=== PATIENT | female | born 1985 | race Caucasian/White ===

== ENCOUNTER → 2016-10-07 | Outpatient (CLI) | payer BC | END | disposition home or self-care (01) | LOC: C.LAB1850 13:28 | PROVIDERS: ATTEND Obstetrics & Gynecology | DX: Z32.00 Encounter for pregnancy test, result unknown (principal); E03.9 Hypothyroidism, unspecified ==

== ENCOUNTER → 2016-10-29 | Outpatient (CLI) | payer BC ==
[2016-10-29 17:57] LABS: URINE APPEARANCE CLEAR (CLEAR); URINE BILIRUBIN NEG (NEG); URINE COLOR YELLOW; URINE NITRITE NEG (NEG); UROBILINOGEN NEG (NEG)
[2016-10-29 18:04] LABS: MANUAL MICROSCOPIC REQUIRED? NO; REVIEW REQ? NO
== END | disposition home or self-care (01) ==
LOC: C.LABSPEC 16:15
PROVIDERS: ATTEND Obstetrics & Gynecology
DX: O99.281 Endocrine, nutritional and metabolic diseases complicating pregnancy, first trimester (principal); Z3A.00 Weeks of gestation of pregnancy not specified

== ENCOUNTER → 2016-12-02 | Outpatient (CLI) | payer BC ==
[2016-12-02 16:22] LABS: THYROID STIMULATING HORMONE 1.3 uIu/ml (0.300-4.500)
== END | disposition home or self-care (01) ==
LOC: C.LAB1850 14:57
PROVIDERS: ATTEND Obstetrics & Gynecology
DX: O99.281 Endocrine, nutritional and metabolic diseases complicating pregnancy, first trimester (principal); Z3A.00 Weeks of gestation of pregnancy not specified; E03.9 Hypothyroidism, unspecified

== ENCOUNTER → 2016-12-27 | Outpatient (CLI) | payer BC ==
[2016-12-27 18:22] LABS: GTGD 50 Grams
== END | disposition home or self-care (01) ==
LOC: C.LAB1850 14:52
PROVIDERS: ATTEND Obstetrics & Gynecology
DX: O99.282 Endocrine, nutritional and metabolic diseases complicating pregnancy, second trimester (principal); Z3A.00 Weeks of gestation of pregnancy not specified

== ENCOUNTER → 2017-01-26 | Outpatient (CLI) | payer BC ==
[2017-01-26 17:07] LABS: THYROID STIMULATING HORMONE 2.08 uIu/ml (0.300-4.500)
== END | disposition home or self-care (01) ==
LOC: C.LAB1850 15:09
PROVIDERS: ATTEND Obstetrics & Gynecology
DX: O99.282 Endocrine, nutritional and metabolic diseases complicating pregnancy, second trimester (principal); Z3A.00 Weeks of gestation of pregnancy not specified

== ENCOUNTER → 2017-03-25 | Outpatient (CLI) | payer BC ==
[2017-03-25 16:43] LABS: HEMATOCRIT 30.8 % (37-47); HEMOGLOBIN 10.5 g/dL (12.0-16.0); MEAN CELL VOLUME 92.8 fL (80-100); MEAN CORPUSCULAR HEMOGLOBIN 31.6 pg (25-34); MEAN CORPUSCULAR HGB CONC 34.1 g/dl (32-36); MEAN PLATELET VOLUME 10.1 fL (7.4-10.4); PLATELET COUNT 249 K/uL (130-400); RED CELL DISTRIBUTION WIDTH CV 13.9 % (11.5-14.5); RED CELL DISTRIBUTION WIDTH SD 47.2 fL (36.4-46.3); WHITE BLOOD COUNT 7.99 K/uL (4.8-10.8)
[2017-03-25 17:16] LABS: ALBUMIN 2.8 gm/dl (3.4-5.0); ALT/SGPT 14 U/L (12-78); AST/SGOT 10 U/L (15-37); CREATININE 0.56 mg/dl (0.60-1.20)
[2017-03-25 17:26] LABS: ALKALINE PHOSPHATASE 92 U/L (45-117); TOTAL PROTEIN 6.9 gm/dl (6.4-8.2)
== END | disposition home or self-care (01) ==
LOC: C.LAB1850 15:50
PROVIDERS: ATTEND Obstetrics & Gynecology
DX: O99.283 Endocrine, nutritional and metabolic diseases complicating pregnancy, third trimester (principal)

== ENCOUNTER → 2017-04-08 | Outpatient (CLI) | payer OTHER | END | disposition home or self-care (01) | LOC: C.LAB1850 07:37 | PROVIDERS: ATTEND Obstetrics & Gynecology | DX: O09.293 Supervision of pregnancy with other poor reproductive or obstetric history, third trimester (principal); Z3A.00 Weeks of gestation of pregnancy not specified ==

== ENCOUNTER → 2017-04-19 | Outpatient (CLI) | payer OTHER | END | disposition home or self-care (01) | LOC: C.LAB1850 14:27 | PROVIDERS: ATTEND Obstetrics & Gynecology | DX: O99.283 Endocrine, nutritional and metabolic diseases complicating pregnancy, third trimester (principal) ==

== ENCOUNTER → 2017-05-20 | Outpatient (CLI) | payer OTHER ==
[~2017-05-20] MED LIST: ALBU18002 INH; CHOL1000 PO; FLVHFA44 INH; LACT1CAP21 PO; LEVO88TA3 PO; MTR600X PO; OMEG12006 PO; OXYC-57 PO; PRENTAB26 PO
== END | disposition home or self-care (01) ==
LOC: C.LABSPEC 16:17
PROVIDERS: ATTEND Obstetrics & Gynecology
DX: O09.293 Supervision of pregnancy with other poor reproductive or obstetric history, third trimester (principal); Z3A.00 Weeks of gestation of pregnancy not specified

== ENCOUNTER 2017-05-23 05:34 | Inpatient (IN) | payer OTHER ==
--- NOTE | 2017-05-20 14:53 | PAT Medication Instructions ---
Service Date May 20, 2017. Current Home Medication List Albuterol Sulfate (Proair Respiclick), 2 PUFF INH Q4 PRN for SOB/Wheezing Cholecalciferol (Vitamin D3), 1 TAB PO QPM Fluticasone Propionate (Flovent Hfa), 2 PUFFS INH BID PRN for SOB/Wheezing Lactobacillus (Probiotic Acidophilus), 1 CAP PO QPM Levothyroxine Sodium (Levothyroxine Sodium), 1 TAB PO QAM Multivit/Min/Iron/Fol Ac/Pren ( Vitamin), 1 TAB PO QPM [place]-3 Fatty Acids ([place] 3), 1 CAP PO QPM Medication Instructions For Your Scheduled Surgery - Hold the following medications starting today: [place]-3 Fatty Acids ([place] 3), 1 CAP PO QPM - Contact your surgeon for instructions for: Aspirin 81MG 1 TAB PO QPM - Take the following medications the morning of surgery with a sip of water: Albuterol Sulfate (Proair Respiclick), 2 PUFF INH Q4 PRN for SOB/Wheezing (if needed, and bring it with you to the hospital) Fluticasone Propionate (Flovent Hfa), 2 PUFFS INH BID PRN for SOB/Wheezing (if needed) Levothyroxine Sodium (Levothyroxine Sodium), 1 TAB PO QAM - Take the following medications as scheduled the night before surgery: Albuterol Sulfate (Proair Respiclick), 2 PUFF INH Q4 PRN for SOB/Wheezing (if needed) Cholecalciferol (Vitamin D3), 1 TAB PO QPM Fluticasone Propionate (Flovent Hfa), 2 PUFFS INH BID PRN for SOB/Wheezing (if needed) Lactobacillus (Probiotic Acidophilus), 1 CAP PO QPM Multivit/Min/Iron/Fol Ac/Pren ( Vitamin), 1 TAB PO QPM If you have any questions please call us at [phone] or [phone] or [phone]
[2017-05-20 15:31] LABS: BASO % 0.2 %; BASO ABS # 0.02 K/uL (0-0.2); EOS % 1.5 %; EOS ABS # 0.13 K/uL (0-0.5); HEMATOCRIT 30.1 % (37-47); HEMOGLOBIN 10.7 g/dL (12.0-16.0); IG# 0.03 K/uL (0.00-0.02); LYMPH % 22.1 %; LYMPH ABS # 1.98 K/uL (1.2-3.4); MEAN CELL VOLUME 90.1 fL (80-100); MEAN CORPUSCULAR HGB CONC 35.5 g/dl (32-36); MEAN PLATELET VOLUME 9.8 fL (7.4-10.4); MONO % 7.2 %; MONO ABS # 0.64 K/uL (0.11-0.59); NEUT % 68.7 %; NEUT ABS # 6.14 K/uL (1.4-6.5); PLATELET COUNT 234 K/uL (130-400); RED CELL DISTRIBUTION WIDTH CV 13.8 % (11.5-14.5); RED CELL DISTRIBUTION WIDTH SD 45.4 fL (36.4-46.3); WHITE BLOOD COUNT 8.94 K/uL (4.8-10.8)
--- NOTE | 2017-05-20 17:46 | HISTORY & PHYSICAL EXAMINATION ---
DATE OF ADMISSION: 05/23/2017 ADMIT DIAGNOSES: 1. Intrauterine at 37 and 1/7 weeks. 2. History of previous T incision and a prior delivery. HISTORY OF PRESENT ILLNESS: Maribel is a 32-year-old white female 2, para 0-1-0-1 with an EDC of 06/12/2017 making her 37 and 1/7 weeks on the date of admission. Maribel's previous was complicated by severe preeclampsia, requiring delivery at 32 weeks. She had a section for nonreassuring testing. Unfortunately, they had to T the incision to get the baby delivered. Therefore, because of the T incision, it is recommended that she not labor and to have a delivery between 37 and 38 weeks. That , her first was IVF PICSI. This was spontaneously conceived. Her due date is determined by her last menstrual period consistent with a first trimester ultrasound. Also pertinent to the history, her is hep C positive. Her hep status at the beginning of the was negative. This has been uncomplicated. There have been no issues with her blood pressure throughout and she shows no signs and symptoms of preeclampsia. She does want a tubal ligation and is sure about sterilization. She has had several 24-hour urines that have been normal. She is on an aspirin for prevention of recurrent preeclampsia. Additionally, she takes levothyroxine for hypothyroidism that has been well managed in this . PAST OBSTETRICAL AND GYNECOLOGIC HISTORY: As noted above. She had a at 32 and 5/7 weeks for a 3 pound 2 ounce baby. She has a history of ovarian cystectomy in July of 2014. She had a cryosurgery of the cervix at the age of 18. She also has a history of IVF. The patient has no history of sexually transmitted illnesses. ALLERGIES: LATEX, but no antibiotics. MEDICATIONS: Include aspirin, levothyroxine 88 mcg, Flovent, ProAir, acidophilus, multivitamin and omega 3 as well as vitamin D. PAST MEDICAL HISTORY: The patient has hypothyroidism, for which she is followed by Dr. Zuniga and a history of preeclampsia. She also has a history of mild asthma. She denies heart disease, heart murmur, diabetes, kidney or liver problems. PAST SURGICAL HISTORY: Includes an ovarian cystectomy in 08/08, cryosurgery to the cervix, , skin cyst removed from the head and groin and wisdom teeth removal. SOCIAL HISTORY: The patient denies tobacco, alcohol or drug use. She lives with her spouse and son. PHYSICAL EXAMINATION: GENERAL: This is a well-developed and well-nourished white female in no acute distress. VITAL SIGNS: Blood pressure 112/72 and weight 215.2 pounds. NECK: Supple without thyromegaly or lymphadenopathy. CHEST: Clear to auscultation bilaterally. CARDIOVASCULAR: Regular rate and rhythm without murmurs, gallops or rubs. BACK: Without costovertebral angle tenderness. ABDOMEN: Gravid, soft and nontender, measuring 38 cm. EXTREMITIES: Show trace edema, but are otherwise benign. LABORATORY DATA: Blood type O positive, antibody negative, rubella immune, RPR nonreactive, hepatitis B negative, HIV negative, Hep C negative, chlamydia and gonorrhea cultures negative, GTT x2 negative, and group B strep was obtained today. She declines CF and SMA testing. She declined genetic testing. ASSESSMENT: Maribel is a 2, para 0-1-0-1 with a history of a previous section with a T incision at 32 and 5/7 weeks for severe preeclampsia. The patient presents today for repeat section at 37 weeks and 1 day and given a T incision and the desire to avoid labor. The risks of surgery were discussed with the patient including the risks of anesthesia, bleeding requiring transfusion, infection, poor wound healing, damage to surrounding structures including bowel, bladder, vessels, nerves and ureters with need for further surgery, hospitalization and intervention. I talked about the risk of possible injury to the baby. The patient is very sure that she would like to have sterilization. The alternatives including barriers, hormones, and long-term reversible contraceptive options were discussed with the patient. We discussed the possibility of regret and then a failure of the tubal with subsequent ectopic . She wishes to proceed with tubal sterilization. This will be done at the time of surgery. Consent was reviewed and signed. Questions were asked and answered. Surgery is planned for May 23.
[~2017-05-23] VITALS: Ht 162.6 cm; Wt 97.5 kg
[2017-05-23] VITALS (14 sets, daily range): BP systolic 113–120; BP diastolic 68–79; PULSE 69–81; TEMP 36.4–37.1; O2SAT 96–100; Ht 162.6 cm; Wt 97.5 kg
[~2017-05-23 05:34] MED LIST changes: -MTR600X PO; -OXYC-57 PO; +PATIENT'S HEIGHT AND/OR WEIGHT NEEDED SCH
[2017-05-23] MEDS ORDERED: LACTATED RINGER'S 1000ML IV SCH (06:00)
[2017-05-23] MEDS ORDERED: CITRIC ACID/SODIUM CITRATE 15 ML UDC PO SCH (06:00)
[2017-05-23] MEDS ORDERED: CEFAZOLIN 3000MG IV PUSH 22.5 ML IV SCH (06:00)
[2017-05-23] MEDS ORDERED: CEFAZOLIN IV 3,000 MG in SYRINGE 0 ML IV SCH (06:00)
[2017-05-23 06:12] LABS: BASO % 0.4 %; BASO ABS # 0.03 K/uL (0-0.2); EOS % 1.9 %; EOS ABS # 0.16 K/uL (0-0.5); HEMATOCRIT 34.1 % (37-47); HEMOGLOBIN 11.9 g/dL (12.0-16.0); IG# 0.04 K/uL (0.00-0.02); LYMPH % 24.1 %; LYMPH ABS # 2.01 K/uL (1.2-3.4); MEAN CELL VOLUME 91.4 fL (80-100); MEAN CORPUSCULAR HEMOGLOBIN 31.9 pg (25-34); MEAN PLATELET VOLUME 10.1 fL (7.4-10.4); MONO % 7.6 %; MONO ABS # 0.63 K/uL (0.11-0.59); NEUT % 65.5 %; NEUT ABS # 5.47 K/uL (1.4-6.5); PLATELET COUNT 252 K/uL (130-400); RED CELL DISTRIBUTION WIDTH CV 13.6 % (11.5-14.5); RED CELL DISTRIBUTION WIDTH SD 45.1 fL (36.4-46.3); WHITE BLOOD COUNT 8.34 K/uL (4.8-10.8)
[2017-05-23 06:19] LABS: MEAN CORPUSCULAR HGB CONC 34.9 g/dl (32-36)
--- NOTE | 2017-05-23 07:10 | History & Physical Bridge Note ---
H&P Re-Evaluation Bridge Note: I have examined the patient, reviewed the History & Physical and in the interval since the performance of the History & Physical I have noted the following changes of clinical significance: No changes noted
[2017-05-23] MEDS ORDERED: MoRPHine SULFATE PF 1 MG/ML 10 ML AMP/VIAL ONE (07:33)
[2017-05-23] MEDS ORDERED: FENTANYL CITRATE INJ 50 MCG/1 ML 2 ML VIAL ONE (07:33)
[2017-05-23] MEDS ORDERED: OXYTOCIN INJ 10 UNITS/ML VIAL ONE ×2 (07:36→08:18)
[2017-05-23] MEDS ORDERED: PHENYLEPHRINE 100MCG/ML 5ML SYR ONE (08:01)
[2017-05-23] MEDS ORDERED: SODIUM CHLORIDE 0.9% 1000ML 1,000 ML IV PRN (08:29)
[2017-05-23] MEDS ORDERED: NALOXONE HCL INJ 1 MG in SODIUM CHLORIDE 0.9% 1000ML 1,000 ML IV PRN (08:29)
[2017-05-23] MEDS ORDERED: NALOXONE HCL INJ 0.08 MG in SYRINGE 1.8 ML IV PRN (08:29)
[2017-05-23] MEDS ORDERED: LACTATED RINGER'S 1000ML 500 ML IV PRN (08:29)
[2017-05-23] MEDS ORDERED: KETOROLAC TROMETHAMINE 30 MG/ML VIAL IV. PRN (08:30)
[2017-05-23] MEDS ORDERED: NO NARCOTICS OR SEDATIVES SCH (08:30)
[2017-05-23] MEDS ORDERED: MoRPHine SULFATE PF 1 MG/ML 10 ML AMP/VIAL EPI PRN (08:30)
[2017-05-23] MEDS ORDERED: NALBUPHINE HCL INJ 10 MG/ML AMP IV PRN (08:30)
[2017-05-23] MEDS ORDERED: EpHEDrine SULFATE INJ 50 MG/ML AMP IV PRN (08:30)
[2017-05-23] MEDS ORDERED: DiphenhydrAMINE HCL 50 MG/ML VIAL IV PRN (08:30)
[2017-05-23] MEDS ORDERED: ONDANSETRON INJ 2 MG/ML 2 ML VIAL IV PRN (08:30)
[2017-05-23] MEDS ORDERED: MEPERIDINE HCL 25 MG/ML CARP IV PRN (08:30)
[2017-05-23] MEDS ORDERED: NALOXONE HCL 0.4 MG/1 ML VIAL/CARP IV PRN (08:30)
[2017-05-23] MEDS ORDERED: MoRPHine SULFATE 2 MG/ML CARP IV PRN (08:30)
[2017-05-23] MEDS ORDERED: BENZOCAINE 20% AER SPR 82.5 GM CAN EXT PRN (08:45)
[2017-05-23] MEDS ORDERED: HYDROCORTISONE ACETATE 25 MG SUPP PR PRN (08:45)
[2017-05-23] MEDS ORDERED: LANOLIN OINT EXT PRN (08:45)
[2017-05-23] MEDS ORDERED: SUPERCREAM 0.870 % 15GM JAR EXT PRN (08:45)
--- NOTE | 2017-05-23 08:52 | [facility] Post Operative Brief Note ---
Immediate Operative Summary Operative Date May 23, 2017. Pre-Operative Diagnosis Previous Caesarean Section with T-incision at 37 weeks desires sterilization Post-Operative Diagnosis Same as Pre-op. Procedure(s) Performed Repeat lower transverse Live female at [address] Armstrong Building Carpenter Helper Surgeon(s) Dr Jones Estimated Blood Loss 600cc Findings Consistent with Post-Op Diagnosis Fluids (cc crystalloids) 2200cc Specimens Placenta Cord Blood Portions of Left and Right Fallopian tubes Drains alcantara Anesthesia Type Spinal Complication(s) none Disposition Accompanied Pt To Recover: no Disposition: L&D
--- NOTE | 2017-05-23 08:53 | [facility] Post Operative Brief Note ---
Immediate Operative Summary Operative Date May 23, 2017. Pre-Operative Diagnosis Repeat Caesarean Section with bilateral tubal ligation (Previous Caesarean Section with T-incision) Post-Operative Diagnosis Same as Pre-op. Procedure(s) Performed Live female at [address] Armstrong Dot Compliance Specialist Surgeon(s) Dr Jones Estimated Blood Loss 600 cc Findings viable female, normal uterus, fallopian tubes and ovaries Specimens Placenta Cord Blood Portions of Left and Right Fallopian tubes Drains alcantara Anesthesia spinal Complication(s) None Disposition L&D
[2017-05-23] MEDS: SIMETHICONE 80 MG CHEW PO SCH ×4 (09:00→20:36)
--- NOTE | 2017-05-23 09:12 | Anesthesiology Progress Note ---
Anesthesia Post Op Note Date & Time May 23, 2017 at 09:10 Notes Mental Status: alert / awake / arousable, participated in evaluation Pt Amnestic to Procedure: Yes Nausea / Vomiting: adequately controlled Pain: adequately controlled Airway Patency, RR, SpO2: stable & adequate BP & HR: stable & adequate Hydration State: stable & adequate Neuraxial Anesthesia: was administered, sensory block is resolving Anesthetic Complications: no major complications apparent The patient did well. She has postop hypothermia likely secondary to intrathecal morphine. The patient states that she feels fine and is not cold. She will have a Natalee Hugger placed. If her hypothermia does not improve, we will consider giving her a dose of IV lorazepam.
[2017-05-23] MEDS ORDERED: OXYTOCIN INJ 20 UNITS in LACTATED RINGER'S 1000ML 1,000 ML IV SCH (09:30)
--- NOTE | 2017-05-23 10:17 | OPERATIVE REPORT ---
DATE OF OPERATION: 05/23/2017 PREOPERATIVE DIAGNOSES: 1. Intrauterine at 37 and 1/7 weeks. 2. History of a previous T incision for section. 3. Desires sterilization. POSTOPERATIVE DIAGNOSES: Same. PROCEDURE: Repeat lower transverse section with bilateral modified [place] tubal ligation. SURGEON: Ann Armstrong MD ANESTHESIA: Spinal. ESTIMATED BLOOD LOSS: 600 mL. FLUIDS: 2200 mL. URINE OUTPUT: 400 mL of clear yellow urine drained from the bladder at the end of the procedure. INDICATIONS: Maribel is a 2, para 0-1-0-1, who in her last at 32 weeks had a delivery for severe preeclampsia. This delivery was complicated by needing to make a T incision on the uterus. Therefore, she is not a candidate for trial of labor and in fact needs early delivery prior to the onset of labor because of increased risk of rupture. Additionally, she desires permanent surgical sterilization. FINDINGS: Viable female infant in cephalic presentation. Nuchal cord x1. Normal uterus, tubes, and ovaries were noted bilaterally. COMPLICATIONS: None. DRAINS: Alberto. DISPOSITION: To recovery room in stable condition. PROCEDURE: The patient was taken to the operating room where she was identified verbally and by bracelet. She was seated on the operating table where spinal anesthetic was placed. She was then placed in dorsal supine position with a leftward tilt. A Alberto catheter was placed. She was prepped and draped in normal sterile fashion. Her anesthetic was tested and found to be adequate. Time-out was held identifying correct patient, procedure, positioning, and preoperative antibiotics. A Pfannenstiel skin incision was made with a knife over the previous Pfannenstiel incision. This was taken to the underlying layer of fascia with the knife. Bleeding was attended to with Bovie electrocautery. The fascia was incised in the midline with the knife and taken out laterally with scissors. The superior edge of the fascial incision was grasped, elevated, and the underlying layer of rectus muscle was taken off bluntly and with scissors. In a similar fashion, the inferior edge of the fascial incision was grasped, elevated and the underlying layer of rectus muscle was taken off bluntly and with scissors. The muscles were sharply and bluntly in the midline. The peritoneum had been entered sharply and was taken superiorly and inferiorly with good visualization of the bladder. The incision was stretched, the bladder blade was placed. The vesicouterine peritoneum was identified, grasped with a snap, entered with the scissors and taken out laterally, sharply. The bladder flap was created digitally. The bladder blade was replaced. Hysterotomy incision was scored with a knife. The membranes were entered with the snap. Clear fluid was noted. The incision was stretched with the profile stitching machine operator's fingers. It also required bandage scissors to open up the incision a little further. The profile stitching machine operator's hand was placed into the uterine incision and we had difficulty delivering the head, so a vacuum was called for and with 1 application and 1 pull the head was delivered, the vacuum was removed. A loose nuchal cord x1 was reduced. The nose and mouth were bulb suctioned. The rest of the infant was then delivered without difficulty. The nose and mouth were again bulb suctioned. There was immediate cry on the surgical field. The cord was clamped and cut. The infant was handed off to waiting pediatricians for drying and attention. Cord blood and segment were obtained for cord gases. The placenta was manually extracted. The uterus was exteriorized and cleared of all clot and debris with moistened laparotomy sponges. The hysterotomy incision was repaired in 2 layers, the first a running locked layer of 0 Vicryl, the second in an imbricating layer of 0 Vicryl. Attention was then turned to the tubes where first on the right and then on the left, a tubal segment was grasped with the Evette. It was sutured x2 with 2-0 plain gut suture and the tube was removed with scissors. The edges were attended to with Bovie electrocautery. The incision was again inspected and found to be hemostatic. The uterus was reanteriorized. The tubal segments were again inspected and found to be hemostatic and intact. The incision was again inspected and found to be hemostatic. The muscles were reapproximated in the midline with 0 Vicryl suture. The fascia was reapproximated starting at the edges meeting in the midline with 0 Vicryl suture. The skin was irrigated and bleeding was attended to with Bovie electrocautery and the skin was closed with subcuticular stitch of 4-0 Vicryl. All sponge, lap and needle counts were correct x2. The patient tolerated the procedure well and was taken to recovery room in stable condition. I attest to the content of the Intraoperative Record and any orders documented therein. Any exception s are noted below.
[2017-05-23] MEDS ORDERED: LEVOTHYROXINE 88 MCG TAB PO ONE (15:59)
--- NOTE | 2017-05-23 16:57 | Progress Note ---
Progress Note Date of Service May 23, 2017. (Med Jones M.D.) Progress Note Assessed the patient's dressing after concerns from nursing regarding incisional drainage. The patient dressing is clean and intact, but there is a collection of blood at the inferior edge of the dressing. Patient's vitals are WNL, uterine fundus is palpable and firm. The patient is doing clinically well. Nursing will continue to reassess. (Med Jones M.D.) I spoke to nursing and recommended reinforcing dressing. (Mary Anne Penaloza M.D.(WORK DISTRIBUTOR/OB))
[2017-05-23] MEDS: DOCUSATE SODIUM 100 MG CAP PO SCH (20:37)
[2017-05-24] VITALS (8 sets, daily range): BP systolic 100–119; BP diastolic 66–76; PULSE 67–80; TEMP 36.5–37.1; O2SAT 97–99
[2017-05-24] MEDS ORDERED: OXYCODONE/ACETAMINOPHEN 5-325 TAB PO PRN (02:00)
[2017-05-24] MEDS ORDERED: KETOROLAC TROMETHAMINE 30 MG/ML VIAL IV. PRN (02:00)
[2017-05-24] MEDS ORDERED: DC INTRASPINAL MORPHINE SCH (02:00)
[2017-05-24] MEDS: IBUPROFEN 600 MG TAB PO PRN ×3 (02:46→23:14)
[2017-05-24] MEDS: OXYCODONE/ACETAMINOPHEN 5-325 TAB PO PRN ×3 (02:46→23:16)
--- NOTE | 2017-05-24 06:46 | Progress Note ---
Subjective May 24, 2017. Subjective conversation w/ patient, physical exam, chart review, lab review Ambulation: ambulating normally Voiding: no voiding problems Passing Gas: Yes Diet Tolerance: Regular Diet Lochia: Moderate Feeding Type: Breast Feeding Review of Systems Constitutional: No fever, No chills Respiratory: No cough, No shortness of breath Cardiac: No chest pain Abdomen: No pain, No nausea, No vomiting Female : No dysuria Objective Vital Signs Date Time Temp Pulse Resp B/P (MAP) Pulse Ox O2 Delivery O2 Flow Rate FiO2 05/24/17 04:15 36.7 67 18 106/70 (82) 98 05/24/17 02:00 16 97 05/24/17 01:00 16 98 05/24/17 00:05 36.8 80 18 100/66 (77) 98 Room Air 05/24/17 00:05 98 Room Air 05/23/17 23:00 16 96 05/23/17 22:00 18 96 05/23/17 21:00 18 98 05/23/17 20:00 18 98 05/23/17 19:35 37.1 81 18 114/68 (83) 97 05/23/17 19:00 18 99 05/23/17 18:00 18 98 05/23/17 17:00 18 97 05/23/17 16:10 36.7 73 20 113/74 (87) 100 Room Air 05/23/17 16:10 100 Room Air 05/23/17 16:10 20 100 05/23/17 15:00 18 100 05/23/17 14:00 36.5 74 18 113/73 (86) 97 Room Air 05/23/17 14:00 18 100 05/23/17 13:00 36.4 69 18 120/76 (91) 100 Room Air 05/23/17 13:00 18 98 05/23/17 12:00 98 Room Air 05/23/17 12:00 98 Room Air 05/23/17 12:00 18 100 05/23/17 12:00 36.6 77 18 115/79 (91) 100 Room Air Physical Exam General Appearance: WELL-APPEARING, WD/WN, NO APPARENT DISTRESS Respiratory/Chest: lungs clear, no respiratory distress Cardiovascular: regular rate, rhythm, no murmur Abdomen: non tender, soft Fundus: Firm Incision Description: Clean, Dry & Intact Extremities: non-tender, normal inspection Laboratory Results Last 24 Hours Test 05/24/17 06:09 Medications Current Inpatient Medications Medications (Trade) Dose Ordered Sig/Rambo Route Start Time Stop Time Status Last Admin Dose Admin Ketorolac Tromethamine (Toradol Inj) 30 mg Q6H PRN IV. 05/24/17 02:00 05/28/17 08:44 Oxycodone/ Acetaminophen (Percocet 5-325mg Tab) 1 tab Q4H PRN PO 05/24/17 02:00 06/07/17 01:59 05/24/17 02:46 1 TAB Oxycodone/ Acetaminophen (Percocet 5-325mg Tab) 2 tab Q4H PRN PO 05/24/17 02:00 06/07/17 01:59 Ibuprofen (Motrin Tab) 600 mg Q4H PRN PO 05/23/17 08:45 06/22/17 08:44 05/24/17 02:46 600 MG Prenat Multivit/ [place]/Iron/Folic Ac ( Vitamin Tab) 1 tab DAILY PO 05/24/17 08:00 06/23/17 07:59 Docusate Sodium (coLACE CAP) 100 mg BID PO 05/23/17 20:00 06/22/17 19:59 05/23/17 20:37 100 MG Cocaine HCl (Supercream 0.870% Cr) BID PRN EXT 05/23/17 08:45 06/06/17 08:44 Lanolin (Lanolin Oint) PRN PRN EXT 05/23/17 08:45 06/22/17 08:44 Hydrocortisone Acetate (Anusol Hc Supp) 25 mg BID PRN [place] 05/23/17 08:45 06/22/17 08:44 Benzocaine (Dermoplast Aero Spr) 1 appln PRN PRN EXT 05/23/17 08:45 06/22/17 08:44 Simethicone (Mylicon Chew Tab) 80 mg QID PO 05/23/17 09:00 06/22/17 08:59 05/23/17 20:36 80 MG Levothyroxine Sodium (Synthroid Tab) 88 mcg DAILYBB PO 05/24/17 07:00 06/23/17 06:59 Assessment and Plan Post-Op Day#: 1 Continue Routine Care: 32 yo female PMH of hypothyroidism, O+/GBS-/RI. Post op day 1. Reviewed patients vitals, WNL. Patient was able to ambulate yesterday afternoon and alcantara was removed early this morning. Patient has not voided yet on her own, but she has had adequate output over 24 hours. There was concern yesterday of incisional drainage--this am, the site was clean, dry and intact. 1. Recovery from c section--cont pp care; ambulate, control pain, support BF, monitor lochia 2. Hypothyroidism--levothyroxine, 88 mcg q daily Resident Physician Supervision Note: I interviewed and examined the patient. Discussed with Dr. Jones and agree with findings and plan as documented in the note. Any exceptions or clarifications are listed here: Patient sitting up doing well this am. Reports flatus, good pain control, alcantara out awaiting void. Plan ambulate, adv diet, po pain meds. Incision clean with bloody steris, might not stay on, intact. ff about 2 down. non tender. hgb noted. routine pp care. Documented By: Mary Anne Penaloza
[2017-05-24] MEDS: LEVOTHYROXINE 88 MCG TAB PO SCH (07:10)
[2017-05-24 07:28] LABS: HEMOGLOBIN 8.8 g/dL (12.0-16.0); MEAN CELL VOLUME 90.9 fL (80-100); MEAN CORPUSCULAR HGB CONC 35.2 g/dl (32-36); MEAN PLATELET VOLUME 9.7 fL (7.4-10.4); PLATELET COUNT 205 K/uL (130-400); RED CELL DISTRIBUTION WIDTH CV 13.9 % (11.5-14.5); WHITE BLOOD COUNT 8.61 K/uL (4.8-10.8)
[2017-05-24 07:38] LABS: BASO % 0.3 %; BASO ABS # 0.03 K/uL (0-0.2); EOS % 1.6 %; EOS ABS # 0.14 K/uL (0-0.5); IG# 0.02 K/uL (0.00-0.02); LYMPH % 22.8 %; LYMPH ABS # 1.96 K/uL (1.2-3.4); MONO % 8.1 %; NEUT ABS # 5.76 K/uL (1.4-6.5)
[2017-05-24] MEDS: PRENATAL VITAMIN TAB PO SCH (08:40)
[2017-05-24] MEDS: SIMETHICONE 80 MG CHEW PO SCH ×4 (08:40→20:27)
[2017-05-24] MEDS: DOCUSATE SODIUM 100 MG CAP PO SCH ×2 (08:40→20:27)
--- NOTE | 2017-05-25 06:05 | Discharge Instructions ---
Discharge Instructions Date of Service May 25, 2017. Admission Reason for Admission: History Of Section, Desires Sterilization Discharge Discharge Diagnosis / Problem: csection Discharge Goals Goal(s): Routine recovery after Medications Continue Dispensed Medications: supercream, dermaplast, tucks, lansinoh Activity Recommendations Activity Limitations: per Instructions/Follow-up section . Instructions / Follow-Up Instructions / Follow-Up ACTIVITY RECOMMENDATIONS: * Gradual return to full activity over the next 2-3 weeks. * No lifting - nothing heavier than baby over the next 2-3 weeks. * Do not engage in vigorous exercise, sexual activity or sports until cleared by your physician. * Do not drive or operate any motorized equipment until cleared by your physician. * You may shower/bathe daily. MEDICATIONS: For discomfort or pain, you may use Acetaminophen (Tylenol), Ibuprofen (Advil), or Naproxen (Aleve) following the package directions. For constipation you may use Colace following the package directions. BREAST CARE: If you are not breast feeding: * Wear a supportive bra 24 hours a day for one to two weeks. * Avoid stimulating your breasts and nipples as much as possible during the first few weeks after delivery. * When taking a shower, have the warm water hit your back, not breasts. * When your breasts feel full, apply ice packs. Usually three to four times a day helps ease the discomfort. * Take a mild pain medication (Tylenol / Motrin) when you are uncomfortable. If breast feeding: * Use breast milk to lubricate nipples. Lansinoh cream may be used for sore nipples. You do not need to remove cream prior to breast feeding. If using a different brand of cream, check the label for directions regarding removal of cream prior to nursing. * Wear a supportive bra. * If having problems with breasts or breast feeding, call a information resource consultant or your health care provider. SPECIAL CARE INSTRUCTIONS: When you are discharged from the hospital, it is important for you to follow the instructions listed below: * During the first week at home, you should be able to care for yourself and your baby. In addition, the usual light household activities are encouraged. * Limit your activities to the way you feel. Do not try to clean the house or move furniture. Be sensible. * If you actively engage in sports and have done so up until the time of your delivery, you may resume these activities as soon as you feel able. This may take up to one month or even longer. Use good judgment. * Continue to take your vitamins for at least six weeks after the of your baby. * Your diet need not be limited unless you were on a special diet before your delivery. Breast-feeding mothers need around 2500 calories per day and at least 64-80 ounces of fluid per day (8 to 10 glasses). * You should eat foods from the four major food groups. Crash diets or fad diets are to be avoided. Eating lean meats, fresh fruits and vegetables, low-fat dairy products, high fiber foods and a regular exercise program, will help you get back to your pre- weight without putting your health at risk. * Constipation is sometimes a problem after delivery. Take a mild laxative as needed. If breast feeding, Milk of Magnesia is acceptable to use. You may use a suppository or Fleets enema. * A daily shower or tub bath is suggested. Wash incision daily with warm soapy water and pat dry. It doesn't need to be covered unless drainage is present. * A bloody vaginal discharge will usually continue until around four weeks . A small amount of bleeding may continue for as long as six weeks. Vaginal discharge changes from the bright red bleeding after delivery to pink then brownish and finally yellowish-pink before becoming white and disappearing. * Bleeding may increase with activity. Your first period may come in 4-8 weeks. If you are breast feeding, your period may be delayed even longer. * [place] (sex) can begin whenever both you and your partner feel comfortable and do not have any form of genital infection. It is recommended that you wait at least six weeks for internal and external healing to occur. If you have questions, please talk to your health care practitioner. A condom should be used to prevent infection and . * Foreplay, gentle intercourse and lubrication is very important the first several times to prevent pain. A water-based lubricant such as K-Y jelly or Astroglide may be used. * If you have RH negative blood and your baby is RH positive, you will receive RHOGAM by injection prior to discharge. The nurse will give you a card to keep with you that has the date and place that you received RHOGAM after delivery. * During your care, you had a Rubella screen done to check for the presence of rubella antibodies in your blood. If your test was negative, you will receive a Rubella vaccine prior to discharge. This vaccine may cause a fever, soreness at the injection site and flu-like symptoms. If these symptoms persist, notify your health care practitioner. is not advised for one month after a Rubella vaccine. * Verbalizes understanding of car seat law as reviewed with patient nursing. * Car Seat hand-out given and reviewed with patient by nursing. * Shaken baby information reviewed with patient by nursing. Call you doctor if: * Heavy bleeding (saturating several pads an hour) or passing clots the size of your fist. * A fever >101 degrees F (38.3 degrees C) on two occasions four hours apart and /or chills. * Unusual pain in the pelvic or vaginal areas. * Call the doctor for any increased redness, drainage or swelling around the incision and any pain unrelieved by prescribed pain medication. * "Baby Blues" lasting longer than two weeks. If you have any questions or concerns, call your health care practitioner at . FOLLOW UP VISIT: * Please call the office at to schedule a 6 week examination. It is important you keep this appointment. It is important for you to make arrangements for either yearly or twice yearly check-ups thereafter. Current Hospital Diet Patient's current hospital diet: Regular OB Diet Discharge Diet Recommended Diet: Regular Diet, Regular OB Diet Procedures Procedures Performed: Repeat lower transverse Live female at 0816 Pending Studies Studies pending at discharge: no Medical Emergencies . Who to Call and When: Medical Emergencies: If at any time you feel your situation is an emergency, please call [phone] immediately. . Non-Emergent Contact Non-Emergency issues call your: Primary Care Provider, Clinical Dietitian . . "Provider Documentation" section prepared by Med Jones. .
[2017-05-25 06:13] LABS: HEMATOCRIT 24.6 % (37-47); HEMOGLOBIN 8.6 g/dL (12.0-16.0)
--- NOTE | 2017-05-25 06:56 | Progress Note ---
Subjective May 25, 2017. Subjective conversation w/ patient, physical exam, chart review, lab review Ambulation: ambulating normally Voiding: no voiding problems Passing Gas: Yes Diet Tolerance: Regular Diet Lochia: Small Review of Systems Constitutional: No fever Respiratory: No cough, No shortness of breath Cardiac: No chest pain, No palpitations Abdomen: No pain, No nausea, No vomiting Female : No dysuria Objective Vital Signs Date Time Temp Pulse Resp B/P (MAP) Pulse Ox O2 Delivery O2 Flow Rate FiO2 05/24/17 23:10 98 Room Air 05/24/17 23:10 36.8 72 18 119/76 (90) 98 Room Air 05/24/17 15:55 36.5 71 18 118/73 (88) Room Air 05/24/17 15:55 Room Air 05/24/17 08:00 37.1 72 18 116/71 (86) 99 Room Air 05/24/17 08:00 99 Room Air 05/24/17 07:33 36.8 74 18 105/71 (82) 99 Room Air Physical Exam General Appearance: WELL-APPEARING, WD/WN, NO APPARENT DISTRESS Respiratory/Chest: lungs clear, no respiratory distress Cardiovascular: regular rate, rhythm, no murmur Abdomen: non tender, soft Fundus: Firm Incision Description: Clean, Dry & Intact Extremities: non-tender, normal inspection Laboratory Results Last 24 Hours Test 05/25/17 06:05 Hemoglobin 8.6 g/dL Hematocrit 24.6 % Medications Current Inpatient Medications Medications (Trade) Dose Ordered Sig/Rambo Route Start Time Stop Time Status Last Admin Dose Admin Ketorolac Tromethamine (Toradol Inj) 30 mg Q6H PRN IV. 05/24/17 02:00 05/28/17 08:44 Oxycodone/ Acetaminophen (Percocet 5-325mg Tab) 1 tab Q4H PRN PO 05/24/17 02:00 06/07/17 01:59 05/24/17 23:16 1 TAB Oxycodone/ Acetaminophen (Percocet 5-325mg Tab) 2 tab Q4H PRN PO 05/24/17 02:00 06/07/17 01:59 Ibuprofen (Motrin Tab) 600 mg Q4H PRN PO 05/23/17 08:45 06/22/17 08:44 05/24/17 23:14 600 MG Prenat Multivit/ Diving Supervisor/Iron/Folic Ac ( Vitamin Tab) 1 tab DAILY PO 05/24/17 08:00 06/23/17 07:59 05/24/17 08:40 1 TAB Docusate Sodium (coLACE CAP) 100 mg BID PO 05/23/17 20:00 06/22/17 19:59 05/24/17 20:27 100 MG Cocaine HCl (Supercream 0.870% Cr) BID PRN EXT 05/23/17 08:45 06/06/17 08:44 Lanolin (Lanolin Oint) PRN PRN EXT 05/23/17 08:45 06/22/17 08:44 Hydrocortisone Acetate (Anusol Hc Supp) 25 mg BID PRN IL 05/23/17 08:45 06/22/17 08:44 Benzocaine (Dermoplast Aero Spr) 1 appln PRN PRN EXT 05/23/17 08:45 06/22/17 08:44 Simethicone (Mylicon Chew Tab) 80 mg QID PO 05/23/17 09:00 06/22/17 08:59 05/24/17 20:27 80 MG Levothyroxine Sodium (Synthroid Tab) 88 mcg DAILYBB PO 05/24/17 07:00 06/23/17 06:59 05/24/17 07:10 88 MCG Assessment and Plan Post-Op Day#: 2 Continue Routine Care: Resident Physician Supervision Note: I interviewed and examined the patient. Discussed with Dr. Jones and agree with findings and plan as documented in the note. Any exceptions or clarifications are listed here: [None] Documented By: Alycia Hayward 32 yo female PMH of hypothyroidism, O+/GBS-/RI. Post op day 2. Reviewed patients vitals, WNL. Patient hgb 8.8 yesterday, no signs or sx of anemia--today 's pending 1. Recovery from c section--cont pp care; ambulate, control pain, support BF, monitor lochia 2. Hypothyroidism--levothyroxine, 88 mcg q daily
[2017-05-25] MEDS: LEVOTHYROXINE 88 MCG TAB PO SCH (07:12)
[2017-05-25 07:30] VITALS: BP 111/70; PULSE 73; TEMP 36.8; O2SAT 99
[2017-05-25] MEDS ORDERED: MTR600X PO ×2 (07:47)
[2017-05-25] MEDS ORDERED: OXYC-57 PO ×2 (07:47)
[2017-05-25] MEDS: IBUPROFEN 600 MG TAB PO PRN ×2 (08:21→13:58)
[2017-05-25] MEDS: OXYCODONE/ACETAMINOPHEN 5-325 TAB PO PRN ×2 (08:22→13:59)
[2017-05-25] MEDS: DOCUSATE SODIUM 100 MG CAP PO SCH (08:25)
[2017-05-25] MEDS: PRENATAL VITAMIN TAB PO SCH (08:25)
[2017-05-25] MEDS: SIMETHICONE 80 MG CHEW PO SCH ×2 (08:25→11:23)
[2017-05-25 14:14] VITALS: BP_DIAS 70; PULSE 73; TEMP 36.8
== END 2017-05-25 14:50 | disposition home or self-care (01) | DRG 766 ==
LOC: C.LD 05:34 → C.MS4N 12:14 → EDSTATUS 13:18
PROVIDERS: ADMIT Obstetrics & Gynecology; ATTEND Obstetrics & Gynecology
PROC: 0U570ZZ Destruction of Bilateral Fallopian Tubes, Open Approach (ICD-10-PCS; principal; 2017-05-23 07:30)
PROC: 10D00Z1 Extraction of Products of Conception, Low, Open Approach (ICD-10-PCS; principal; 2017-05-23 07:30)
DX: O34.219 Maternal care for unspecified type scar from previous cesarean delivery (principal); O99.284 Endocrine, nutritional and metabolic diseases complicating childbirth; E03.9 Hypothyroidism, unspecified; Z3A.37 37 weeks gestation of pregnancy; Z37.0 Single live birth; T88.51XA Hypothermia following anesthesia, initial encounter; T40.2X5A Adverse effect of other opioids, initial encounter

== ENCOUNTER 2017-05-29 16:54 | Inpatient (IN) | payer OTHER ==
[~2017-05-29] VITALS: Ht 160 cm; Wt 94.3 kg
[~2017-05-29 16:54] MED LIST changes: +MTR600X PO; +OXYC-57 PO; -PATIENT'S HEIGHT AND/OR WEIGHT NEEDED SCH
[2017-05-29 20:20] VITALS: BP 143/85; PULSE 57; TEMP 36.9; O2SAT 99; Ht 160 cm; Wt 94.3 kg
--- NOTE | 2017-05-29 22:55 | History and Physical ---
History & Physical Date May 29, 2017. Chief Complaint Incision drainage, bleeding History of Present Illness 32yo s/p repeat section with tubal ligation on 05/23/[address] Armstrong. She presented to [place] ER today with complaint of bleeding from incision and malodorous discharge at incision site. I received a phone call from the ER physician at [place], telling me that the patient needed admission for wound debridement and concern for abdominal abscess. He stated that, while the hospital in [place] has [employer] and general surgery services with on-call physicians, they were not willing to see the patient because the surgery had been performed elsewhere. He further stated that since the patient delivered at [facility], she was requesting transfer for care with [facility] physicians. Because the patient had delivered with [facility] and because surgical/wound care did not seem to be available for this patient at [place], I accepted the transfer. Patient reports no fevers, no chills, no nausea/vomiting. Some pain at the incision site, but her biggest concern was bleeding, some blood clots extruding from incision, and bad smell. She is . She has had an appetite. Minimal lochia. Her was complicated by history of preeclampsia with 33w delivery in prior , history of T-incision on uterus in prior , exposure to Hep C ( is Hep C+, testing during was negative), hypothyroidism. Past surgery: ovarian cystectomy, cryosurgery, wisdom teeth, cysts from head and groin, x 2 Past Medical/Surgical History Medical Problems: (1) Hematoma (2) with 32 completed weeks gestation (3) Severe pre-eclampsia in third trimester Allergies Coded Allergies: Latex (Verified Allergy, Mild, RASH, 05/23/17) Home Medications Scheduled Cholecalciferol (Vitamin D3), 1 TAB PO QPM Lactobacillus (Probiotic Acidophilus), 1 CAP PO QPM Levothyroxine Sodium (Levothyroxine Sodium), 1 TAB PO QAM Multivit/Min/Iron/Fol Ac/Pren ( Vitamin), 1 TAB PO QPM [place]-3 Fatty Acids ([place] 3), 1 CAP PO QPM Scheduled PRN Albuterol Sulfate (Proair Respiclick), 2 PUFF INH Q4 PRN for SOB/Wheezing Fluticasone Propionate (Flovent Hfa), 2 PUFFS INH BID PRN for SOB/Wheezing Ibuprofen (Ibuprofen), 600 MG PO Q4H PRN for Pain, BORJA, Cramping, or Fever Oxycodone/Acetaminophen 5MG/325MG (Percocet 5MG/325MG), 1 TAB PO Q4H PRN for Pain - Pain Scale 1-5 Physical Examination Skin: warm/dry Respiratory/Chest: normal breath sounds Cardiovascular: regular rate, rhythm Abdomen / GI: + pertinent finding (incision site with right side, wound dehiscence of 4cm with extrusion of dark blood clots. Bilateral bruising of skin on either side of incision.) Extremities: normal inspection Neurologic/Psych: alert, oriented x 3 Diagnosis A/P POD#6 s/p repeat section with incisional hematoma vs abscess Labs performed at [facility] showed normal WBC, slightly anemic hgb 9. CT report shows anterior wall hematoma vs abscess. No images available. Given lack of fever, lack of elevated WBC, and appearance of clots, suspect hematoma. Plan of Treatment Will plan to take patient to OR for opening and debridement of incision, will plan to consult wound care for followup after surgery. NPO after midnight.
[2017-05-29 22:57] LABS: BASO % 0.5 %; BASO ABS # 0.05 K/uL (0-0.2); EOS % 3.4 %; EOS ABS # 0.31 K/uL (0-0.5); HEMATOCRIT 24.9 % (37-47); HEMOGLOBIN 8.5 g/dL (12.0-16.0); IG# 0.03 K/uL (0.00-0.02); LYMPH % 29.1 %; LYMPH ABS # 2.65 K/uL (1.2-3.4); MEAN CELL VOLUME 93.3 fL (80-100); MEAN CORPUSCULAR HEMOGLOBIN 31.8 pg (25-34); MEAN CORPUSCULAR HGB CONC 34.1 g/dl (32-36); MEAN PLATELET VOLUME 9.2 fL (7.4-10.4); MONO % 5.5 %; NEUT % 61.2 %; NEUT ABS # 5.58 K/uL (1.4-6.5); NUCLEATED RED BLOOD CELL ABS 0.02 K/uL (0-0); PLATELET COUNT 258 K/uL (130-400); RED CELL DISTRIBUTION WIDTH SD 46.5 fL (36.4-46.3); WHITE BLOOD COUNT 9.12 K/uL (4.8-10.8)
[2017-05-29 23:30] VITALS: BP 131/83; PULSE 56; TEMP 36.9; O2SAT 99
[2017-05-30] VITALS (7 sets, daily range): BP systolic 128–141; BP diastolic 76–87; PULSE 54–66; TEMP 36.6–37; O2SAT 92–99
[2017-05-30] MEDS ORDERED: ONDANSETRON INJ 2 MG/ML 2 ML VIAL ONE (05:34)
[2017-05-30] MEDS ORDERED: DEXAMETHASONE SOD INJ 4 MG/ML VIAL ONE (05:34)
[2017-05-30] MEDS ORDERED: SUCCINYLCHOLINE CHLORIDE 20 MG/ML 10 ML VIAL IV ONE (05:34)
[2017-05-30] MEDS ORDERED: MIDAZOLAM HCL 1 MG/ML 2ML VIAL ONE (05:34)
[2017-05-30] MEDS ORDERED: FENTANYL CITRATE INJ 50 MCG/1 ML 2 ML VIAL ONE ×2 (05:34→06:20)
[2017-05-30] MEDS ORDERED: PROPOFOL IV EMULSION 10 MG/ML 20 ML VIAL IV ONE (05:34)
[2017-05-30] MEDS ORDERED: FENTANYL CITRATE INJ 50 MCG/1 ML 2 ML VIAL IV PRN (05:45)
[2017-05-30] MEDS ORDERED: ONDANSETRON INJ 2 MG/ML 2 ML VIAL IV PRN ×2 (05:45→07:45)
[2017-05-30] MEDS ORDERED: HYDROmorphone INJ 1 MG/ML SYR IV PRN (05:45)
[2017-05-30] MEDS ORDERED: ATROPINE SULFATE 0.1 MG/ML 5ML SYR IV PRN (05:45)
[2017-05-30] MEDS ORDERED: EpHEDrine SULFATE INJ 50 MG/ML AMP IV PRN (05:45)
[2017-05-30] MEDS ORDERED: CEFAZOLIN IV 2,000 MG in DEXTROSE 5% 50ML 50 ML IV SCH (06:00)
[2017-05-30] MEDS ORDERED: CEFAZOLIN SOD 2000MG/15 ML IV PUSH IV SCH (06:00)
--- NOTE | 2017-05-30 06:50 | [facility] Post Operative Brief Note ---
Immediate Operative Summary Operative Date May 30, 2017. Pre-Operative Diagnosis Incision Hematoma Post-Operative Diagnosis Same as preoperative. Procedure(s) Performed Wound Debridement of Incision Surgeon Dr. Boateng [employer] Crewmember Surgeon(s) None per surgeon Estimated Blood Loss 0ml active blood loss; 400ml clots Findings See Below Fascia intact, 400cc clot extending length of incision Specimens None per surgeon Drains None alcantara removed at conclusion of case Anesthesia Type General Complication(s) none Disposition Accompanied Pt To Recover: no Disposition: Recovery Room / PACU
--- NOTE | 2017-05-30 07:10 | Anesthesiology Progress Note ---
Anesthesia Post Op Note Date & Time May 30, 2017 at 07:10 Vital Signs Pain Intensity: 0.0 Vital Signs Past 12 Hours Date Time Temp Pulse Resp B/P (MAP) Pulse Ox O2 Delivery O2 Flow Rate FiO2 05/30/17 03:20 36.6 66 16 129/77 (94) 98 Room Air 05/29/17 23:30 36.9 56 16 131/83 (99) 99 Room Air 05/29/17 23:30 99 Room Air 05/29/17 20:20 36.9 57 18 143/85 99 Room Air Notes Mental Status: alert / awake / arousable, participated in evaluation Pt Amnestic to Procedure: Yes Nausea / Vomiting: adequately controlled Pain: adequately controlled Airway Patency, RR, SpO2: stable & adequate BP & HR: stable & adequate Hydration State: stable & adequate Anesthetic Complications: no major complications apparent
[2017-05-30] MEDS ORDERED: BISACODYL 10 MG SUPP PR PRN (07:45)
[2017-05-30] MEDS ORDERED: PROMETHAZINE HCL INJ 25 MG in SODIUM CHLORIDE 0.9% 50ML 50 ML IV PRN (07:45)
[2017-05-30] MEDS ORDERED: SIMETHICONE 80 MG CHEW PO PRN (07:45)
[2017-05-30] MEDS ORDERED: KETOROLAC TROMETHAMINE 30 MG/ML VIAL IV. PRN (07:45)
[2017-05-30] MEDS ORDERED: MAGNESIUM HYDROXIDE SUSP 30 ML UDC PO PRN (07:45)
[2017-05-30] MEDS ORDERED: OXYCODONE/ACETAMINOPHEN 5-325 TAB PO PRN ×2 (07:45)
[2017-05-30] MEDS ORDERED: OXYC-57 PO (07:49)
--- NOTE | 2017-05-30 07:53 | Discharge Instructions ---
Discharge Instructions Date of Service May 30, 2017. Admission Reason for Admission: Status Post , Bleeding Incision, Abscess Discharge Discharge Diagnosis / Problem: same Discharge Goals Goal(s): Routine recovery after surgery Activity Recommendations Activity Limitations: per Instructions/Follow-up section . Instructions / Follow-Up Instructions / Follow-Up ACTIVITY RECOMMENDATIONS: * Gradual return to full activity over the next 2-3 weeks. * No lifting - nothing heavier than baby over the next 2-3 weeks. * Do not engage in vigorous exercise, sexual activity or sports until cleared by your physician. * Do not drive or operate any motorized equipment until cleared by your physician. * You may shower/bathe daily. MEDICATIONS: For discomfort or pain, you may use Acetaminophen (Tylenol), Ibuprofen (Advil), or Naproxen (Aleve) following the package directions. For constipation you may use Colace following the package directions. BREAST CARE: If you are not breast feeding: * Wear a supportive bra 24 hours a day for one to two weeks. * Avoid stimulating your breasts and nipples as much as possible during the first few weeks after delivery. * When taking a shower, have the warm water hit your back, not breasts. * When your breasts feel full, apply ice packs. Usually three to four times a day helps ease the discomfort. * Take a mild pain medication (Tylenol / Motrin) when you are uncomfortable. If breast feeding: * Use breast milk to lubricate nipples. Lansinoh cream may be used for sore nipples. You do not need to remove cream prior to breast feeding. If using a different brand of cream, check the label for directions regarding removal of cream prior to nursing. * Wear a supportive bra. * If having problems with breasts or breast feeding, call a lead consultant or your health care provider. SPECIAL CARE INSTRUCTIONS: When you are discharged from the hospital, it is important for you to follow the instructions listed below: * During the first week at home, you should be able to care for yourself and your baby. In addition, the usual light household activities are encouraged. * Limit your activities to the way you feel. Do not try to clean the house or move furniture. Be sensible. * If you actively engage in sports and have done so up until the time of your delivery, you may resume these activities as soon as you feel able. This may take up to one month or even longer. Use good judgment. * Continue to take your vitamins for at least six weeks after the of your baby. * Your diet need not be limited unless you were on a special diet before your delivery. Breast-feeding mothers need around 2500 calories per day and at least 64-80 ounces of fluid per day (8 to 10 glasses). * You should eat foods from the four major food groups. Crash diets or fad diets are to be avoided. Eating lean meats, fresh fruits and vegetables, low-fat dairy products, high fiber foods and a regular exercise program, will help you get back to your pre- weight without putting your health at risk. * Constipation is sometimes a problem after delivery. Take a mild laxative as needed. If breast feeding, Milk of Magnesia is acceptable to use. You may use a suppository or Fleets enema. * A daily shower or tub bath is suggested. Wash incision daily with warm soapy water and pat dry. It doesn't need to be covered unless drainage is present. * A bloody vaginal discharge will usually continue until around four weeks . A small amount of bleeding may continue for as long as six weeks. Vaginal discharge changes from the bright red bleeding after delivery to pink then brownish and finally yellowish-pink before becoming white and disappearing. * Bleeding may increase with activity. Your first period may come in 4-8 weeks. If you are breast feeding, your period may be delayed even longer. * [place] (sex) can begin whenever both you and your partner feel comfortable and do not have any form of genital infection. It is recommended that you wait at least six weeks for internal and external healing to occur. If you have questions, please talk to your health care practitioner. A condom should be used to prevent infection and . * Foreplay, gentle intercourse and lubrication is very important the first several times to prevent pain. A water-based lubricant such as K-Y jelly or Astroglide may be used. * If you have RH negative blood and your baby is RH positive, you will receive RHOGAM by injection prior to discharge. The nurse will give you a card to keep with you that has the date and place that you received RHOGAM after delivery. * During your care, you had a Rubella screen done to check for the presence of rubella antibodies in your blood. If your test was negative, you will receive a Rubella vaccine prior to discharge. This vaccine may cause a fever, soreness at the injection site and flu-like symptoms. If these symptoms persist, notify your health care practitioner. is not advised for one month after a Rubella vaccine. * Verbalizes understanding of car seat law as reviewed with patient nursing. * Car Seat hand-out given and reviewed with patient by nursing. * Shaken baby information reviewed with patient by nursing. Call you doctor if: * Heavy bleeding (saturating several pads an hour) or passing clots the size of your fist. * A fever >101 degrees F (38.3 degrees C) on two occasions four hours apart and /or chills. * Unusual pain in the pelvic or vaginal areas. * Call the doctor for any increased redness, drainage or swelling around the incision and any pain unrelieved by prescribed pain medication. * "Baby Blues" lasting longer than two weeks. If you have any questions or concerns, call your health care practitioner at . FOLLOW UP VISIT: * Please call the office at to schedule a 6 week examination. It is important you keep this appointment. It is important for you to make arrangements for either yearly or twice yearly check-ups thereafter. Current Hospital Diet Patient's current hospital diet: Regular OB Diet Discharge Diet Recommended Diet: Regular OB Diet Procedures Procedures Performed: Wound Debridement of Incision Pending Studies Studies pending at discharge: no Medical Emergencies . Who to Call and When: Medical Emergencies: If at any time you feel your situation is an emergency, please call [phone] immediately. . Non-Emergent Contact Non-Emergency issues call your: Primary Care Provider, Gleason Operator . . "Provider Documentation" section prepared by Carmen Boateng. . Foreign Language Teacher Recommendations Foreign Language Teacher Recommendations: Follow up with Wound Care Clinic - 8:30am Tuesday Morning for wound vac. [place] Drug Monitoring Program Search Results: patient reviewed within database
[2017-05-30] MEDS ORDERED: DOCUSATE SODIUM 100 MG CAP PO SCH (09:00)
--- NOTE | 2017-05-30 10:41 | OPERATIVE REPORT ---
DATE OF OPERATION: 05/30/2017 PREOPERATIVE DIAGNOSIS: section incision hematoma. POSTOPERATIVE DIAGNOSIS: section incision hematoma. PROCEDURE PERFORMED: Wound debridement of section incision. SURGEON: Dr. Boateng. AGRI BUSINESS AGENT: None. ESTIMATED BLOOD LOSS: 0 mL active blood loss, 400 mL clots. FINDINGS: Fascia was intact with a 400 mL clot extending the length of the incision. SPECIMENS: None. DRAINS: None. Alberto was removed at the conclusion of the case with yellow urine. ANESTHESIA: General. COMPLICATIONS: None. DISPOSITION: Stable and good to recovery area. INDICATIONS FOR PROCEDURE: Patient is a 32-year-old G2, P1-1-0-2, status post repeat section with tubal ligation on 05/23/2017 who had presented as a transfer from [facility]. There was a concern on CT scan performed at [facility] that the patient had an abscess versus hematoma. White count was normal. The patient has been afebrile. She had noted bloody discharge and opening of the incision which prompted her to present to the Emergency Department. She was transferred to my care at [facility] for exploration and debridement of the wound. DESCRIPTION OF PROCEDURE: The patient was seen in the preoperative holding area where risks, benefits, alternatives to surgery were reviewed. She elected to proceed with the case. She signed informed consent. All questions were answered. She was taken to the operating room where general anesthesia was administered. She received 2 g of Ancef preoperatively. A timeout was confirmed. She was prepared and draped in the usual sterile fashion and skin cleansed with Betadine. There was a 4 cm opening of the incision at the right side of the incision that was extruding blood clot. I opened the incision with a scalpel cutting through the previous suture, and large amounts of clot started spilling out of the incision. This was all cleared manually for a total of approximately 400 mL of blood clot. The fascia was probed along its length of the incision, and this fascia was intact. The bed of the wound was irrigated with copious amounts of irrigation for approximately 3 L of warmed normal saline. The wound was inspected again. The fascial reapproximation was again probed along its length and found to be intact. No other obvious areas of blood clot formation or any obvious areas of abscess were noted. The tissue in the wound bed appeared healthy with no signs of necrosis or infection. The skin surrounding the incision was normal in appearance without erythema or other signs of infection. Bovie cautery was used to control small areas of oozing bleeding, I think these were likely irritated by clearing and irrigation of the wound. No obvious bleeding was noted and no obvious source of the patient's blood clot formation was noted on exploration of the wound. At the conclusion of irrigation, excellent hemostasis was noted. The wound was packed with 1 length of 15 feet x 2 inch wide iodoform gauze, and 1 ABD dressing was folded in 3 segments and inserted at the top of the incision. This was covered with a second ABD bandage and taped into place. The patient tolerated the procedure well. She was taken to the recovery area in stable and good condition. She has an appointment tomorrow to be evaluated at the wound clinic for further evaluation and consideration of a wound VAC. The plan will be to discharge patient from the hospital today, and she will see wound care as an outpatient. I attest to the content of the Intraoperative Record and any orders documented therein. Any exception s are noted below.
[2017-05-30] MEDS ORDERED: IV FLUIDS COMPLETED PRN (12:00)
== END 2017-05-30 12:50 | disposition home or self-care (01) | DRG 776 ==
LOC: INTOOBSV 19:50 → C.MS4N 19:50 → OBSVTOIN 22:33
PROVIDERS: ADMIT Obstetrics & Gynecology; ATTEND Obstetrics & Gynecology
PROC: 0JCC0ZZ Extirpation of Matter from Pelvic Region Subcutaneous Tissue and Fascia, Open Approach (ICD-10-PCS; principal; 2017-05-30 06:00)
DX: O99.73 Diseases of the skin and subcutaneous tissue complicating the puerperium (principal); L76.32 Postprocedural hematoma of skin and subcutaneous tissue following other procedure; O90.0 Disruption of cesarean delivery wound; Y83.8 Other surgical procedures as the cause of abnormal reaction of the patient, or of later complication, without mention of misadventure at the time of the procedure; O90.81 Anemia of the puerperium; O99.285 Endocrine, nutritional and metabolic diseases complicating the puerperium; E03.9 Hypothyroidism, unspecified; O99.215 Obesity complicating the puerperium; E66.9 Obesity, unspecified; Z68.36 Body mass index [BMI] 36.0-36.9, adult; Z98.51 Tubal ligation status; Z87.59 Personal history of other complications of pregnancy, childbirth and the puerperium; Z79.899 Other long term (current) drug therapy; Z91.040 Latex allergy status

== ENCOUNTER → 2017-09-16 | Outpatient (CLI) | payer OTHER ==
[~2017-09-16] MED LIST changes: +AMOX500C3 PO; -OXYC-57 PO; +SULF800T23 PO
== END | disposition home or self-care (01) ==
LOC: C.LABMFLN 10:36
PROVIDERS: ATTEND Family Medicine
DX: E03.9 Hypothyroidism, unspecified (principal)